=== PATIENT | female | born 2000 | race Caucasian/White ===

== ENCOUNTER 2019-01-21 09:18 | Emergency (ER) | payer OTHER ==
[~2019-01-21] VITALS: Ht 162.6 cm; Wt 78.6 kg
[2019-01-21 09:36] VITALS: BP 131/61; TEMP 98.5
[2019-01-21] MEDS ORDERED: BIRTH CONTROL PO (09:40)
[2019-01-21 10:44] LABS: CALCIUM 9.6 mg/dL (8.4-10.2); CREATININE, serum 0.56 (0.52-1.25); POTASSIUM 4.2 mmol/L (3.4-5.0)
[2019-01-21] MEDS ORDERED: IBU600 MG PO (11:33)
[2019-01-21 11:53] VITALS: PULSE 84
== END 2019-01-21 11:54 | disposition home or self-care (01) ==
LOC: COL.ER 09:18
PROVIDERS: Physician Assistant
DX: R07.81 Pleurodynia (principal); R05 Cough
CPT/HCPCS: Q9967